=== PATIENT | male | born 1995 | race Caucasian/White ===

== ENCOUNTER 2018-02-01 17:35 | Emergency (ER) | payer BC, MEDICAID, OTHER ==
[~2018-02-01] VITALS: Ht 172.7 cm; Wt 75.0 kg
[~2018-02-01 17:35] MED LIST: NEOM3.5O37 RIGHTEYE
[2018-02-01 17:47] VITALS: BP 146/65
[2018-02-01] MEDS ORDERED: LORA0.5T PO (18:57)
[2018-02-01] MEDS ORDERED: LORazepam 1 MG tablet PO ONE (19:00)
== END 2018-02-01 19:10 | disposition home or self-care (01) ==
LOC: ER 17:36
DX: F41.9 Anxiety disorder, unspecified (principal); F12.10 Cannabis abuse, uncomplicated; Z79.899 Other long term (current) drug therapy
CPT/HCPCS: 99284

== ENCOUNTER 2022-11-20 18:32 | Emergency (ER) | payer MEDICAID ==
[~2022-11-20] VITALS: Ht 177.8 cm; Wt 75.0 kg
[~2022-11-20 18:32] MED LIST changes: -NEOM3.5O37 RIGHTEYE; +NICO-687 TD; +QUET100T34 PO
--- NOTE | 2022-11-20 18:34 | NUR ---
pt bought in by police for 5150 due to HI, pt states that he does not have HI, states he had a dream about X-MAN and that in his dream he had killed his girlfriend and told his mother about the dream and she called the police on him, pt with slight anxiety noted, making good eye contact, no thoughts of SI per pt
[2022-11-20 19:23] LABS: BASOPHILS # (AUTO) 0.1 X10'3 (0-0.2); BASOPHILS % (AUTO) 0.5 % (0-1); EOSINOPHILS # (AUTO) 0.1 X10'3 (0-0.9); EOSINOPHILS % (AUTO) 0.8 % (0-6); HEMATOCRIT 36.6 % (42.0-52.0); HEMOGLOBIN 11.8 g/dl (14.0-17.9); LYMPHOCYTES % (AUTO) 17.1 % (21-51); MEAN CORPUSCULAR HEMOGLOBIN 30.3 PG (27.0-31.0); MEAN CORPUSCULAR HGB CONC 32.3 g/dL (33.0-36.5); MEAN PLATELET VOLUME 7.2 FL (7.4-10.4); MONOCYTES # (AUTO) 0.8 X10'3 (0-0.9); MONOCYTES % (AUTO) 6.9 % (2-12); NEUTROPHILS # (AUTO) 8.6 X10'3 (1.8-7.7); NEUTROPHILS % (AUTO) 74.7 % (42-75); PLATELET COUNT 473 X10'3 (140-440); RED BLOOD COUNT 3.89 X10'6 (4.70-6.10); RED CELL DISTRIBUTION WIDTH 13.4 % (11.5-14.5); WHITE BLOOD COUNT 11.5 X10'3 (4.5-11.0)
[2022-11-20 19:44] LABS: ALANINE AMINOTRANSFERASE 23 U/L (12-78); ALBUMIN 4.2 G/DL (3.4-5.0); ALBUMIN/GLOBULIN RATIO 1.2 (1.1-1.5); ALKALINE PHOSPHATASE 56 IU/L (46-116); ANION GAP 5 (8-16); ASPARTATE AMINO TRANSFERASE 24 U/L (10-37); BILIRUBIN,TOTAL 0.3 MG/DL (0.1-1.0); BLOOD UREA NITROGEN 6 MG/DL (7-18); BUN/CREATININE RATIO 5.9 (5.4-32.0); CALCIUM 8.4 MG/DL (8.5-10.1); CHLORIDE 105 MMOL/L (99-107); CREATININE 1.01 MG/DL (0.60-1.10); GLUCOSE 95 MG/DL (70-104); POTASSIUM 3.6 MMOL/L (3.5-5.1); SODIUM 139 MMOL/L (135-145); TOTAL CARBON DIOXIDE 28.8 MMOL/L (24-32); TOTAL PROTEIN 7.8 G/DL (6.4-8.2); eGFR 87 ML/MIN
[2022-11-20] MEDS ORDERED: nicotine PERCUTAN (19:44)
[2022-11-20] MEDS ORDERED: QUETIAPINE FUMARATE PO (19:46)
[2022-11-20 19:47] LABS: ETHANOL < 0.010 GM/DL (0.0-0.010)
[2022-11-20] MEDS ORDERED: LORazepam 1 MG tablet PO ONE (19:50)
--- NOTE | 2022-11-20 20:00 | NUR ---
pt coopertive, resting in bed, no distress noted at this time
--- NOTE | 2022-11-20 20:45 | NUR ---
pt sleeping, breathing even and unlabored
--- NOTE | 2022-11-21 07:22 | NUR ---
patient sleeping. no distress noted.
[2022-11-21] MEDS: nicotine 21mg patch - 24 hr TD SCH (08:43)
--- NOTE | 2022-11-21 09:00 | NUR ---
sutures removed from right lower leg. patient medicated for pain. unwilling to have wound dressed at this time.
[2022-11-21] MEDS ORDERED: cephalexin 500mg capsule PO ONE (09:15)
[2022-11-21] MEDS ORDERED: cephalexin 500mg capsule PO SCH (09:15)
[2022-11-21] MEDS ORDERED: DOXYCYCLINE 100MG CAPSULE PO ONE (09:18)
[2022-11-21] MEDS ORDERED: acetaminophen 325mg tablet PO ONE ×2 (09:55→19:45)
--- NOTE | 2022-11-21 11:18 | NUR ---
patient awake and using telephone to call mother.
--- NOTE | 2022-11-21 13:51 | NUR ---
patient calm. changing into hospital scrubs and placing belongings into bag.
[2022-11-21 15:19] LABS: URINE AMPHETAMINE SCREEN NEGATIVE (Neg); URINE BARBITUATE SCREEN NEGATIVE (Neg); URINE BENZODIAZEPINES SCREEN NEGATIVE (Neg); URINE CANNABINOID SCREEN POSITIVE (Neg); URINE COCAINE SCREEN NEGATIVE (Neg); URINE METHADONE SCREEN NEGATIVE (Neg); URINE OPIATE SCREEN NEGATIVE (Neg); URINE PHENCYCLIDINE SCREEN NEGATIVE (Neg)
--- NOTE | 2022-11-21 15:37 | NUR ---
patient pacing around room signing. no complaints at this time.
--- NOTE | 2022-11-21 17:47 | NUR ---
PATIENT PACING AROUND ROOM STANDING IN DOORWAY CONVERSING WITH STAFF AND PATIENTS. CONTINUING TO BE REMINDED TO STAY IN ROOM AND NOT BOTHER FELLOW PATIENTS.
--- NOTE | 2022-11-21 18:47 | NUR ---
Patient given meal tray at this time. Patient pacing around room, declines additional needs at this time. Requires redirection to stay in room.
[2022-11-21] MEDS ORDERED: hydrOXYzine 25 MG tablet PO ONE (19:10)
[2022-11-21] MEDS ORDERED: LORazepam 1 MG tablet PO ONE (19:10)
--- NOTE | 2022-11-21 21:40 | NUR ---
Patient remains awake and alert, reasonably calm and cooperative. Patient sitting in room, frequently messing with water/sink.
--- NOTE | 2022-11-21 21:47 | NUR ---
Patient given television at door to assist with patient boredom. Patient verbalizes appreciation.
--- NOTE | 2022-11-22 00:01 | NUR ---
Patient VS updated. Patient requests nighttime seroquel for sleep at this time, brought ordered dose of 200mg, patient states the 200mg is too strong and concerned about that dosage. Patient took 100mg, documented on emar. 100mg returned to [facility]nicell.
--- NOTE | 2022-11-22 03:16 | NUR ---
patient up to RR with RN as escort. Patient calm and reasonably cooperative.
--- NOTE | 2022-11-22 04:40 | NUR ---
patient awake at this time, no distress noted. Watching TV in room, frequently opening and interacting with staff, pleasant with staff at this time. Remains calm and cooperative.
[2022-11-22] MEDS: quetiapine 100mg tablet PO PRN ×3 (05:26→20:00)
--- NOTE | 2022-11-22 05:26 | NUR ---
Patient awake at this time, wound dressing is noted to be in poor condition. Wound cleansed with soap/water, dry dressing replaced at this time. patient requesting the other half of his seroquel 200mg (100 taken before, 2nd 100 given now) so he can get some sleep. Patient remains calm and cooperative. No distress noted.
--- NOTE | 2022-11-22 07:50 | NUR ---
PT OUT OF ROOM REQUESTING CRACKERS AND JUICE. PT AMB TO BATHROOM WITH STEADY GAIT. NO COMPLAINTS AT THIS TIME. PT DENIES SI/HI AT THIS TIME. WILL CONTINUE TO MONITOR.
[2022-11-22] MEDS ORDERED: SERT-434 PO (08:34)
[2022-11-22] MEDS: nicotine 21mg patch - 24 hr TD SCH (08:42)
[2022-11-22] MEDS: sertraline 50mg tablet PO SCH (08:42)
[2022-11-22] MEDS: DOXYCYCLINE 100MG CAPSULE PO SCH ×2 (09:03→20:00)
--- NOTE | 2022-11-22 09:25 | NUR ---
PT TALKING ON THE PHONE, MENTAL HEALTH INTO ROOM TO [facility]. PER MH WORKER WILL CONTINUE 5150 HOLD UNLESS PT FINDS FAMILY TO TAKE RESPONSIBILITY FOR PT.
--- NOTE | 2022-11-22 10:18 | NUR ---
SPOKE WITH MOTHER OF PT. PER MOTHER STATES DOESNT THINK ITS SAFE FOR PT TO GO HOME. PER MOTHER PT WAS THREATENING SUICIDE IF HE WAS PLACED IN [facility] [place]. PT REMAINS COOPERATIVE BUT ANXIOUS.
[2022-11-22] MEDS ORDERED: CLON-369 PO (10:23)
[2022-11-22] MEDS: clonazePAM 0.5mg tablet PO PRN ×2 (10:42→18:11)
--- NOTE | 2022-11-22 11:15 | NUR ---
PT GIVEN CRANYONS AND COLORING PAGE PER REQUEST.
--- NOTE | 2022-11-22 12:07 | NUR ---
PT GIVEN LUNCH TRAY
--- NOTE | 2022-11-22 13:31 | NUR ---
PT GOT FRUSTATED AND CALLED EMERGENCY SERVICES. INFOMRED PT THAT HE CAN'T CALL. PT STATES GOT FRUSTATED AND JUST HIT NUMBERS. PT INFOMRED THAT HE CAN CALL FAMILY BUT IF EMERGENCY SERVICES IS CALLED AGAIN PHONE WILL HAVE TO BE REMOVED. PT AGREEABLE. PT MEDICATED PER ORDERS. PT UPSET ABOUT BEING IN HOSPITAL. REPORT GIVEN TO KAITY AT [facility]
[2022-11-22] MEDS: cephalexin 250mg capsule PO SCH ×2 (13:43→20:00)
--- NOTE | 2022-11-22 15:35 | NUR ---
Pt received from [facility] ER. Pt cooperative with 1:1 done at bedside. Pt coloring on his bed. Pt awoled from [facility].
--- NOTE | 2022-11-22 16:55 | NUR ---
Pt has a laceration to his right lower extremity with a dry dressing intact. Wound is approx. 2 weeks old from kicking a window in, sutures have been removed. No c/o Pain. Currently on ABT for possible cellulitis.
--- NOTE | 2022-11-22 18:17 | NUR ---
Pt. approached nurses station and asked if there was a possibilty of him discharging tonight. Pt was told he would not be leaving tonight and became irritable. Pt received PO PRN Klonopin for c/o agitation/anxiety.
--- NOTE | 2022-11-22 18:33 | NUR ---
The patient is irritable. He denies need to be on a 5150 hold. Stated people are trying to keep him against his will for no reason. He is difficult to redirect. He is blaming others for the reason he is having any difficulty in his life.
--- NOTE | 2022-11-22 20:32 | NUR ---
The patient is up and pleasant. He is intrussive with staff and peers. He was singing hymns loudly in front of a sleeping peer but was easily redirected.
--- NOTE | 2022-11-22 21:31 | NUR ---
The patient is hyper druze. Needs frequent redirection.
--- NOTE | 2022-11-22 22:37 | NUR ---
The patient up to use the bathroom
--- NOTE | 2022-11-22 23:37 | NUR ---
The patient is awake and working on art projects on his bed. He remains intrusive with staff at times but accepting redirection
--- NOTE | 2022-11-23 01:09 | NUR ---
The patient appears to be sleeping
--- NOTE | 2022-11-23 02:41 | NUR ---
The patient appears to be sleeping
--- NOTE | 2022-11-23 04:03 | NUR ---
The patient is up, rambling and difficult to redirect at times. Intrussive, hyperverbal. He told paranoid peer not to trust the staff. He is currently on his bed talking nonstop. Discussed behaviors with Dr. Dhillon and requested medications.
--- NOTE | 2022-11-23 04:16 | NUR ---
Contacted [facility] charge hand for a medication evaluation, Spoke with Zunilda PACHECO
[2022-11-23] MEDS ORDERED: LORazepam 1 MG tablet PO ONE (04:30)
--- NOTE | 2022-11-23 05:05 | NUR ---
The patient is on his bed. He did accept ativan. He is trying to manipulate staff to allow him to have the TV and he was made aware that at 0800.
--- NOTE | 2022-11-23 05:48 | NUR ---
The patient appears to be sleeping
[2022-11-23] MEDS: cephalexin 250mg capsule PO SCH ×3 (08:00→21:18)
--- NOTE | 2022-11-23 08:00 | NUR ---
Pt woke for breakfast. He states, "I'm a snacker so it will take me awhile to eat." Pt's tray left at his bedside. Pt is now singing, Hallelujah and talking to whomever will listen. He took his medications as prescribed. When asked why are you here, pt states, "I had a dream about XMan and killing my girlfriend and my called the police.
[2022-11-23] MEDS: quetiapine 100mg tablet PO SCH (09:27)
[2022-11-23] MEDS: DOXYCYCLINE 100MG CAPSULE PO SCH ×2 (09:27→20:09)
[2022-11-23] MEDS: sertraline 50mg tablet PO SCH ×2 (09:27→20:09)
[2022-11-23] MEDS: LORazepam 1 MG tablet PO SCH ×2 (09:28→20:09)
[2022-11-23] MEDS: nicotine 21mg patch - 24 hr TD SCH (09:29)
--- NOTE | 2022-11-23 10:00 | NUR ---
Pt sitting on his bed talking to whoever will listen. He is upset he is still here and on a HOLD. Pt was given Seroquel 100mg and Ativan with his morning medications and appears more relaxed then prior to his medications.
--- NOTE | 2022-11-23 10:42 | NUR ---
Pt appears to be sleeping. RR even and unlabored.
--- NOTE | 2022-11-23 12:06 | NUR ---
Pt awake. Pt redirected over racist "joke." Pt disagreed with this ghost writer stating, "it was a joke, I don't have a racist bone in my body." Pt is now sitting at the side of his bed drinking a juice.
[2022-11-23] MEDS ORDERED: clonazePAM 0.5mg tablet PO PRN (12:15)
[2022-11-23] MEDS: clonazePAM 0.5mg tablet PO PRN ×2 (13:29→16:57)
--- NOTE | 2022-11-23 14:20 | NUR ---
Pt sitting on the side of his bed singing and coloring. He continues to get involved in everything happening on the unit.
--- NOTE | 2022-11-23 16:15 | NUR ---
Pt is up visiting Mom and brother. At times he is heard crying. He is cooperative with staff.
--- NOTE | 2022-11-23 17:43 | NUR ---
Pt is pacing. He requested music and it was put on for him. Pt requested a PRN of klonopin and it was given. He remains cooperative and polite with staff.
--- NOTE | 2022-11-23 18:21 | NUR ---
Pt is coloring and eating at the same time. He called family to request coloring books, non-toxic washable markers and reading books. He has been medication compliant. He is polite and cooperative with peers and staff.
[2022-11-23] MEDS ORDERED: non-formulary drug (Sertraline HCl 1.5 TAB) PO SCH (20:00)
[2022-11-23] MEDS: quetiapine 100mg tablet PO PRN (21:49)
--- NOTE | 2022-11-24 07:00 | NUR ---
received Pt awake in bed. Pt hyperverbal and argumentative, but responds well to verbal engagement and reasoning. Pt making grandiose statements and affect not matching his stated emotions at times.
[2022-11-24] MEDS: DOXYCYCLINE 100MG CAPSULE PO SCH ×2 (07:53→20:05)
[2022-11-24] MEDS: quetiapine 100mg tablet PO SCH (07:54)
[2022-11-24] MEDS: LORazepam 1 MG tablet PO SCH ×2 (07:54→20:05)
[2022-11-24] MEDS: cephalexin 250mg capsule PO SCH ×3 (07:54→20:05)
[2022-11-24] MEDS: sertraline 50mg tablet PO SCH ×2 (07:54→20:05)
[2022-11-24] MEDS: nicotine 21mg patch - 24 hr TD SCH (08:00)
--- NOTE | 2022-11-24 09:15 | NUR ---
Pt continues to be hyperverbal, singing at times. Pt intrusive, yet responds for short periods to limits. Pt took AM meds w/o issue and ate breakfast. Pt in bed resting quietly.
--- NOTE | 2022-11-24 11:05 | NUR ---
Pt appears to have fallen asleep and remains asleep at this time.
--- NOTE | 2022-11-24 12:00 | NUR ---
Pt woke and is talking on phone with his sister.
--- NOTE | 2022-11-24 14:15 | NUR ---
Pt has used phone intermitently and is angry r/t hearing that his GF may attempt to get custody of their daughter. Pt states he just needs housing and not in-pt tx. [facility] office called and stated that [facility] was interested.
--- NOTE | 2022-11-24 14:45 | NUR ---
Nurse to nurse completed with Adrian ramirez.
--- NOTE | 2022-11-24 15:45 | NUR ---
Pt in bed talking to Pt next to him. Pt remains grandiose and takes no responsibility for how his actions hurt and effect others. Pt made inappropriate comment to a female staff and limits set.
--- NOTE | 2022-11-24 17:10 | NUR ---
Pt's mother came and is visiting with him. Visit appears to be appropriate at this time.
[2022-11-24] MEDS ORDERED: acetaminophen 325mg tablet PO ONE (18:50)
--- NOTE | 2022-11-24 18:53 | NUR ---
The patient is quietly resting on his bed. He was polite during the assessment. He denies hearing voices. He denies suicidal thoughts. He does say he feels depressed because of a breakup with his girlfriend. Right lower leg is still red but appears to be improving since admit. He did request tylenol for mild back pain and klonopin for anxiety.
[2022-11-24] MEDS: clonazePAM 0.5mg tablet PO PRN (18:59)
[2022-11-24] MEDS: quetiapine 100mg tablet PO PRN (20:05)
--- NOTE | 2022-11-24 20:13 | NUR ---
Note demetrice in EDM - 11/24/22 at 2015 by CASIE The patient is focused on medications. He is asking for something for withdrawals from methamphetamines. He was made aware that he would be transfering soon to [facility] and they would address his medications up there.
--- NOTE | 2022-11-24 20:16 | NUR ---
The patient's brother came to visit and he presented as supportive of Oscar. In the morning he is asking to visit Oscar prior to transport and he wants to bring him clothing items. The patient currently is focused on writing his girlfriend a letter which appears to be disorganized and covering approximately 8-10 pages. He denies that he wants to hurt her or his child.
--- NOTE | 2022-11-24 21:11 | NUR ---
The patient is quietly working on letters and art work at his bedside. He is medication compliant
--- NOTE | 2022-11-24 23:19 | NUR ---
The patient appears to be sleeping
--- NOTE | 2022-11-25 01:20 | NUR ---
The patient appears to be sleeping
--- NOTE | 2022-11-25 03:04 | NUR ---
The patient appears to be sleeping
--- NOTE | 2022-11-25 04:28 | NUR ---
The patient appears to be sleeping
--- NOTE | 2022-11-25 05:12 | NUR ---
The patient appears to be sleeping
[2022-11-25 05:51] VITALS: BP 115/63
--- NOTE | 2022-11-25 06:52 | NUR ---
Patient is awake, sitting on the side of his bed writing letters. He is acting appropriately.
[2022-11-25] MEDS: quetiapine 100mg tablet PO SCH (07:53)
[2022-11-25] MEDS: nicotine 21mg patch - 24 hr TD SCH (07:53)
[2022-11-25] MEDS: LORazepam 1 MG tablet PO SCH (07:53)
[2022-11-25] MEDS: DOXYCYCLINE 100MG CAPSULE PO SCH (07:53)
[2022-11-25] MEDS: sertraline 50mg tablet PO SCH (07:53)
[2022-11-25] MEDS: cephalexin 250mg capsule PO SCH (07:54)
--- NOTE | 2022-11-25 08:00 | NUR ---
Patient's mother and his brother here to visit before patient leaves
--- NOTE | 2022-11-25 08:23 | NUR ---
tech was given a bag of pt belongings brought in by family/significant other, tech checked bag for anything he should not have and gave it to pt to change into. Second bag of belongings was chacked and given to class c driver, third bag was inventoried bag kept at hospital given to class c driver as well.
--- NOTE | 2022-11-25 08:23 | NUR ---
Permit Specialist here to transport patient to [facility].
--- NOTE | 2022-11-25 08:28 | NUR ---
Patient discharging to [place].
== END 2022-11-25 08:34 ==
LOC: ER 18:32
DX: R45.850 Homicidal ideations (principal); Z20.822 Contact with and (suspected) exposure to COVID-19; L03.116 Cellulitis of left lower limb; F41.9 Anxiety disorder, unspecified; F32.9 Major depressive disorder, single episode, unspecified; F12.90 Cannabis use, unspecified, uncomplicated; Z79.899 Other long term (current) drug therapy
CPT/HCPCS: 36415; 80053; 80305; 80320; 85025; 87811; 99285; Q0177

== ENCOUNTER 2023-04-30 13:56 | Emergency (ER) | payer MEDICAID ==
[~2023-04-30] VITALS: Ht 172.7 cm; Wt 75.0 kg
[~2023-04-30 13:56] MED LIST changes: +ATOR20TA66 PO; +BUSP30TA2 PO; +CLON-369 PO; +CLON1TAB12 PO; +DOCU100C40 PO; +MIRT-88 PO; -NICO-687 TD; +OLAN15TA35 PO; -QUET100T34 PO; +SERT100T PO; +[UNRECOGNIZED DRUG - CODE] PO
[2023-04-30 14:43] LABS: BASOPHILS # (AUTO) 0.1 X10'3 (0-0.2); BASOPHILS % (AUTO) 0.9 % (0-1); EOSINOPHILS # (AUTO) 0.3 X10'3 (0-0.9); EOSINOPHILS % (AUTO) 2.4 % (0-6); HEMATOCRIT 42.8 % (42.0-52.0); HEMOGLOBIN 13.9 g/dl (14.0-17.9); LYMPHOCYTES # (AUTO) 2.3 X10'3 (1.1-4.8); LYMPHOCYTES % (AUTO) 21.2 % (21-51); MEAN CORPUSCULAR HEMOGLOBIN 28.3 PG (27.0-31.0); MEAN CORPUSCULAR HGB CONC 32.5 g/dL (33.0-36.5); MEAN CORPUSCULAR VOLUME 87.2 FL (78-98); MONOCYTES # (AUTO) 0.7 X10'3 (0-0.9); MONOCYTES % (AUTO) 6.6 % (2-12); NEUTROPHILS # (AUTO) 7.3 X10'3 (1.8-7.7); NEUTROPHILS % (AUTO) 68.9 % (42-75); PLATELET COUNT 396 X10'3 (140-440); RED BLOOD COUNT 4.91 X10'6 (4.70-6.10); RED CELL DISTRIBUTION WIDTH 18.8 % (11.5-14.5); WHITE BLOOD COUNT 10.7 X10'3 (4.5-11.0)
[2023-04-30 14:51] LABS: CLARITY,URINE CLEAR (Clear); COLOR,URINE STRAW (Yellow); GLUCOSE, URINE NEGATIVE (Neg); KETONES,URINE NEGATIVE (Neg); LEUKOCYTE ESTERASE ,URINE NEGATIVE (Neg); NITRITES, URINE NEGATIVE (Neg); OCCULT BLOOD,URINE NEGATIVE (Neg); PH,URINE 5.5 (4.8-8.0); PROTEIN,URINE NEGATIVE (Neg); UROBILINOGEN,URINE 0.2 E.U/dL (0.2-1.0)
[2023-04-30 14:54] LABS: UA COLLECTION TYPE CLN CATCH MIDSTREAM; URINE AMPHETAMINE SCREEN NEGATIVE (Neg); URINE BARBITUATE SCREEN NEGATIVE (Neg); URINE BENZODIAZEPINES SCREEN NEGATIVE (Neg); URINE CANNABINOID SCREEN POSITIVE (Neg); URINE COCAINE SCREEN NEGATIVE (Neg); URINE METHADONE SCREEN NEGATIVE (Neg); URINE OPIATE SCREEN NEGATIVE (Neg); URINE PHENCYCLIDINE SCREEN NEGATIVE (Neg)
[2023-04-30 14:54] LABS: ALANINE AMINOTRANSFERASE 18 U/L (12-78); ALBUMIN 4.1 G/DL (3.4-5.0); ALBUMIN/GLOBULIN RATIO 1.1 (1.1-1.5); ALKALINE PHOSPHATASE 77 IU/L (46-116); ANION GAP 9 (8-16); ASPARTATE AMINO TRANSFERASE 12 U/L (10-37); BILIRUBIN,TOTAL 0.3 MG/DL (0.1-1.0); BLOOD UREA NITROGEN 9 MG/DL (7-18); BUN/CREATININE RATIO 8.7 (10.0-20.0); CALCIUM 8.8 MG/DL (8.5-10.1); CHLORIDE 104 MMOL/L (99-107); CREATININE 1.03 MG/DL (0.60-1.10); ETHANOL < 0.010 GM/DL (0.0-0.010); GLUCOSE 82 MG/DL (70-104); POTASSIUM 4.2 MMOL/L (3.5-5.1); SODIUM 138 MMOL/L (135-145); TOTAL CARBON DIOXIDE 24.7 MMOL/L (24-32); TOTAL PROTEIN 7.9 G/DL (6.4-8.2); eGFR 85 ML/MIN
--- NOTE | 2023-04-30 15:01 | NUR ---
Patient admitted suicidal thoughts and plan to hang himself, cut himself, or overdose himself if he can. Patient admitted going through major stressor in life currently. Belongings removed from his room.
[2023-04-30 15:16] LABS: ANISOCYTOSIS 2+; LARGE PLATELETS FEW; PLATELET ESTIMATE NORMAL
--- NOTE | 2023-04-30 17:54 | NUR ---
Patient's mother at bedside with the patient. Explained to the mother that patient cannot have his belongings with him including cellphone. I let the mother know that patient's wallet in the safety lock and was taken by ER registration staff. Patient's mother stated that she will take the patient's belonging bags that has patient's shoes, clothing, and a cellphone inside the bag.
--- NOTE | 2023-04-30 18:19 | NUR ---
ASSUMED CARE FROM [facility]. PT MOTHER AT BEDSIDE. PT EATING DINNER TRAY, NO S/S OF DISTRESS.
[2023-04-30] MEDS ORDERED: BUSP30TA3 PO (18:36)
[2023-04-30] MEDS ORDERED: DOCU100C40 PO (18:36)
[2023-04-30] MEDS ORDERED: OLAN15TA35 PO (18:36)
[2023-04-30] MEDS ORDERED: ATOR20TA66 PO (18:36)
[2023-04-30] MEDS ORDERED: CLON-527 PO (18:36)
[2023-04-30] MEDS ORDERED: SERT-434 PO (18:36)
[2023-04-30] MEDS ORDERED: REM30T PO (18:36)
[2023-04-30] MEDS: atorvastatin 20mg tablet PO SCH (19:08)
[2023-04-30] MEDS ORDERED: OLANZAPINE 5 MG TABLET PO PRN (19:15)
[2023-04-30] MEDS: busPIRone 15mg tablet PO SCH (20:23)
[2023-04-30] MEDS: mirtazapine 15mg tablet PO SCH (20:23)
[2023-04-30] MEDS: docusate sod 100mg capsule PO SCH (20:23)
[2023-04-30] MEDS: clonazePAM 1mg tablet PO SCH (20:23)
--- NOTE | 2023-04-30 20:56 | NUR ---
PT AMBULATED TO RESTROOM WITH STEADY GAIT. BROTHER VISITING WENT HOME
[2023-05-01] MEDS ORDERED: nicotine 14mg patch - 24hr TD ONE (08:00)
[2023-05-01] MEDS ORDERED: nicotine 14mg patch - 24hr TD SCH (08:00)
[2023-05-01] MEDS ORDERED: docusate sod 100mg capsule PO PRN (08:10)
[2023-05-01] MEDS: atorvastatin 20mg tablet PO SCH (08:35)
[2023-05-01] MEDS: busPIRone 15mg tablet PO SCH ×4 (08:35→21:05)
[2023-05-01] MEDS: docusate sod 100mg capsule PO SCH ×2 (08:35→19:57)
[2023-05-01] MEDS: sertraline 50mg tablet PO SCH (08:35)
[2023-05-01] MEDS: clonazePAM 1mg tablet PO SCH ×2 (08:39→19:57)
--- NOTE | 2023-05-01 13:34 | NUR ---
RN GAVE REPORT TO BRENDA AT [facility]. PER BRENDA IF PT IS APPROVED HE WILL NOT GET A BED UNTIL TOMORROW AND [facility] WILL CONTACT US IF ACCEPTED.
[2023-05-01] MEDS: mirtazapine 15mg tablet PO SCH (21:05)
--- NOTE | 2023-05-02 06:44 | NUR ---
Patient currently sleeping comfortably, not in distress. Hospital telephone was removed from his room by program director this am
[2023-05-02] MEDS ORDERED: nicotine 21mg patch - 24 hr TD ONE (08:50)
[2023-05-02] MEDS: clonazePAM 1mg tablet PO SCH (09:04)
[2023-05-02] MEDS: atorvastatin 20mg tablet PO SCH (09:04)
[2023-05-02] MEDS: busPIRone 15mg tablet PO SCH ×2 (09:04→13:42)
[2023-05-02] MEDS: docusate sod 100mg capsule PO SCH (09:05)
[2023-05-02] MEDS: sertraline 50mg tablet PO SCH (09:05)
--- NOTE | 2023-05-02 12:58 | NUR ---
Report given to JUNIOR Clark from [facility]
--- NOTE | 2023-05-02 13:04 | NUR ---
Patient brought to bed 22 from main ER. Patient has an ankle monitor and cord was given to staff. Patient lying in bed and appears to be sleeping with sheets over his head.
--- NOTE | 2023-05-02 13:59 | NUR ---
1:1 was completed at bedside and pt. presents with a blunted affect, however was cooperative. He endorses ongoing S/I with thoughts that "Come in waves." When questioned regarding any plan pt. endorses this and reports that his plan changes, and states, "When I came here I was trying to choke myself." Pt. denies any A/V/MCKEE and no delusional statements were made. Pt. requested a snack and is sitting up eating at this time.
--- NOTE | 2023-05-02 14:07 | NUR ---
Pt's TSH and Covid results were faxed to [facility] and [facility] per their request.
--- NOTE | 2023-05-02 14:50 | NUR ---
Discharge Note: Pt. was accompanied off the unit by [facility] truck driver rubbish collector and security to the vehicle which will be transporting him to [facility] [place]. Pt's belongings were inventoried and returned to him by Tech. This comic book writer reviewed pt's discharge instructions with him and he reported understanding. Pt. continues to report S/I, and report was given to [facility] nurse accepting pt. by this comic book writer.
[2023-05-02 15:13] VITALS: BP 142/86
== END 2023-05-02 15:34 | disposition home or self-care (01) ==
LOC: ER 13:57
DX: R45.850 Homicidal ideations (principal); Z20.822 Contact with and (suspected) exposure to COVID-19; F32.A Depression, unspecified; F29 Unspecified psychosis not due to a substance or known physiological condition; F17.200 Nicotine dependence, unspecified, uncomplicated; F12.90 Cannabis use, unspecified, uncomplicated
CPT/HCPCS: 36415; 80053; 80305; 80320; 81003; 85008; 85025; 87811; 99285

== ENCOUNTER 2024-03-14 15:53 | Outpatient (CLI) | payer MEDICAID ==
[~2024-03-14 15:53] MED LIST changes: -BUSP30TA2 PO; +BUSP30TA3 PO; -CLON-369 PO; +CLON-527 PO; -CLON1TAB12 PO; -MIRT-88 PO; +REM30T PO; +SERT-434 PO; -SERT100T PO; -[UNRECOGNIZED DRUG - CODE] PO
== END 2024-03-14 23:59 | disposition home or self-care (01) ==
LOC: RAD 15:53
PROVIDERS: ATTEND Nurse Practitioner Psychiatric/Mental Health
DX: R00.1 Bradycardia, unspecified (principal); Z79.899 Other long term (current) drug therapy
CPT/HCPCS: 93005